=== PATIENT | female | born 1980 | race Native Hawaiian/Other Pacific Islander ===

== ENCOUNTER 2017-12-25 22:36 | Emergency (ER) | payer OTHER ==
[2017-12-25] MEDS ORDERED: NACL 0.9% 1000 ML 1,000 ML IV ONE (23:48)
[2017-12-26 00:47] LABS: Basophils # (Auto) 0.2 K/mm3 (0.0-0.1); Eosinophils # (Auto) 0.2 K/mm3 (0.0-0.4); Eosinophils % (Auto) 1.8 % (0.0-4.3); Hematocrit 35.4 % (30.3-42.9); Hemoglobin 11.6 gm/dl (10.1-14.3); Lymphocytes % (Auto) 28.7 % (13.4-35.0); Mean Corpuscular HGB Conc 33 % (30-34); Mean Corpuscular Volume 74 fl (79-97); Monocytes # (Auto) 0.7 K/mm3 (0.0-0.8); Monocytes % (Auto) 7.1 % (0.0-7.3); Platelet Count 196 K/mm3 (140-440); Red Blood Count 4.78 M/mm3 (3.65-5.03); Red Cell Distribution Width 17.5 % (13.2-15.2)
[2017-12-26 00:51] LABS: Mean Corpuscular Hemoglobin 24 pg (28-32)
[2017-12-26 00:56] LABS: Alanine Aminotransferase 7 units/L (7-56); Albumin 4.6 g/dL (3.9-5); BUN/Creatinine Ratio 25; Blood Urea Nitrogen 10 mg/dL (7-17); Calcium 9.8 mg/dL (8.4-10.2); Hemolysis Index 3
[2017-12-26 01:07] LABS: Bilirubin,Urine NEG (Negative); Blood,Urine NEG (Negative); Color,Urine Yellow (Yellow); Protein,Urine <15 mg/dL mg/dL (Negative); Urobilinogen,Urine < 2.0 mg/dL (<2.0); WBC,Urine < 1.0 /HPF (0.0-6.0)
--- NOTE | 2017-12-26 01:32 | Emergency Department Report ---
ED Abdominal Pain HPI - General Chief Complaint: Abdominal Pain Stated Complaint: RIBS/STOMACH PAIN Time Seen by Provider: 12/26/17 01:23 Source: patient Mode of arrival: Ambulatory Limitations: No Limitations - History of Present Illness Initial Comments: Patient is 37 years old female with no significant past medical history. Patient presented to the ER complaining of right upper quadrant and epigastric abdominal pain that radiated to her back. Patient stated that pain continued for 2 hours and went away. Patient denied any nausea or vomiting or diarrhea. No fever. MD Complaint: abdominal pain -: This evening Location: RUQ, epigastric Radiation: back Migration to: no migration Severity: moderate Severity scale (0 -10): 5 - Related Data Allergies Allergy/AdvReac Type Severity Reaction Status Date / Time No Known Allergies Allergy Unverified 12/25/17 23:42 ED Review of Systems ROS: Stated complaint: RIBS/STOMACH PAIN Other details as noted in HPI Comment: All other systems reviewed and negative Constitutional: denies: chills, fever Respiratory: denies: cough, orthopnea, shortness of breath, SOB with exertion, SOB at rest, wheezing Cardiovascular: denies: chest pain, palpitations, dyspnea on exertion Gastrointestinal: abdominal pain. denies: nausea, vomiting, diarrhea, constipation, hematemesis, melena, hematochezia Musculoskeletal: denies: back pain Neurological: denies: headache, weakness, numbness, paresthesias, confusion, abnormal gait ED Past Medical Hx - Past Medical History Previous Medical History?: No - Surgical History Past Surgical History?: Yes Additional Surgical History: c sec X3, clavicle - Social History Smoking Status: Current Every Day Smoker Substance Use Type: Alcohol ED Physical Exam - General Limitations: No Limitations General appearance: alert, in no apparent distress - Head Head exam: Present: atraumatic, normocephalic, normal inspection - Eye Eye exam: Present: normal appearance - ENT ENT exam: Present: normal exam, normal orophraynx, mucous membranes moist - Neck Neck exam: Present: normal inspection, full ROM. Absent: tenderness, meningismus - Respiratory Respiratory exam: Present: normal lung sounds bilaterally. Absent: respiratory distress, wheezes, rales, rhonchi, chest wall tenderness, accessory muscle use, decreased breath sounds, prolonged expiratory - Cardiovascular Cardiovascular Exam: Present: regular rate, normal rhythm, normal heart sounds - GI/Abdominal GI/Abdominal exam: Present: soft, tenderness (right upper quadrant tenderness.) , normal bowel sounds. Absent: distended, guarding, rebound, rigid, organomegaly, mass, bruit, pulsatile mass, hernia - Extremities Exam Extremities exam: Present: normal inspection, full ROM, normal capillary refill. Absent: tenderness, pedal edema, joint swelling, calf tenderness - Back Exam Back exam: Present: normal inspection, full ROM. Absent: CVA tenderness (R), CVA tenderness (L), muscle spasm, paraspinal tenderness, vertebral tenderness - Neurological Exam Neurological exam: Present: alert, oriented X3, CN II-XII intact, normal gait, reflexes normal - Skin Skin exam: Present: warm, intact, normal color ED Course Vital Signs 12/25/17 23:23 Temperature 98.2 F Pulse Rate 57 L Respiratory 14 Rate Blood Pressure 106/70 O2 Sat by Pulse 100 Oximetry ED Medical Decision Making - Lab Data Result diagrams: 12/25/17 23:51 12/25/17 23:51 - Radiology Data Radiology results: report reviewed Referring Physician: CRISTY VINCENT Patient Name: GWEN HAJI Date of : 1980 Sex: Female Report Date: 2017-12-26 Report Status: [place] [address] Ultrasound Report Signed Patient: GWEN HAJI MR#: [id number] : 1980 Acct:[id number] Age/Sex: 37 / F ADM Date: 12/25/17 Loc: ED Attending Dr: Ordering Physician: CRISTY VINCENT Date of Service: 12/26/17 Procedure(s): US abdomen limited Accession Number(s): [id number] cc: CRISTY VINCENT FINAL REPORT EXAM: US ABDOMEN LIMITED HISTORY: right upper quadrant pain and tenderness TECHNIQUE: Real-time sonography was performed of the right upper quadrant and images are submitted for interpretation. PRIORS: None. FINDINGS: The liver has a normal homogeneous echotexture without focal lesions. There are multiple stones in the gallbladder including a stone in the gallbladder neck. There is no gallbladder wall thickening or pericholecystic fluid. There is no evidence of biliary dilatation, the common bile duct measures 3 millimeters. The pancreas has a normal echogenicity and appearance. The visualized segments of the abdominal aorta and inferior vena cava appear normal. The right kidney appears normal in size, shape and echogenicity, measuring 10.7 x 4.8 x 4.8 cm IMPRESSION: Multiple stones in the gallbladder including a stone in the gallbladder neck. There is no sonographic evidence of acute cholecystitis. Transcribed By: [facility] Dictated By: RYNE AGUILAR MD Electronically Authenticated By: RYNE AGUILAR MD Signed Date/Time: 12/26/17329 DD/ 9 TD/TT: 12/26/17329 - Medical Decision Making Patient stated that she is feeling better. She does not have any pain now. No clinical, laboratory or ultrasonographic evidence of acute cholecystitis. I advised patient to follow-up with in the next 2-3 days. Critical care attestation.: If time is entered above; I have spent that time in minutes in the direct care of this critically ill patient, excluding procedure time. ED Disposition Clinical Impression: Abdominal pain, Gallbladder stone with nonacute cholecystitis Disposition: DC-01 TO HOME OR SELFCARE Is pt being admited?: No Condition: Stable Instructions: Abdominal Pain (ED), Biliary Colic (ED) Referrals: MARCIA MARLOW DO [Staff Physician] - 3-5 Days
[2017-12-26] MEDS ORDERED: NACL 0.9% 1000 ML 1,000 ML ONE (01:33)
[2017-12-26 01:58] LABS: HCG Qualitative,Urine Negative (Negative)
--- NOTE | 2017-12-26 03:37 | Ultrasound Report ---
FINAL REPORT EXAM: US ABDOMEN LIMITED HISTORY: right upper quadrant pain and tenderness TECHNIQUE: Real-time sonography was performed of the right upper quadrant and images are submitted for interpretation. PRIORS: None. FINDINGS: The liver has a normal homogeneous echotexture without focal lesions. There are multiple stones in the gallbladder including a stone in the gallbladder neck. There is no gallbladder wall thickening or pericholecystic fluid. There is no evidence of biliary dilatation, the common bile duct measures 3 millimeters. The pancreas has a normal echogenicity and appearance. The visualized segments of the abdominal aorta and inferior vena cava appear normal. The right kidney appears normal in size, shape and echogenicity, measuring 10.7 x 4.8 x 4.8 cm IMPRESSION: Multiple stones in the gallbladder including a stone in the gallbladder neck. There is no sonographic evidence of acute cholecystitis.
[2017-12-26] MEDS ORDERED: TORADOL IM ONE (04:54)
[2017-12-26 05:03] VITALS: BP 104/68
[2017-12-26] MEDS ORDERED: ZOFRAN ODT PO ONE (05:05)
[2017-12-26] MEDS ORDERED: ULTRAM PO ONE (05:05)
== END 2017-12-26 05:10 | disposition home or self-care (01) ==
LOC: ED 22:36
DX: K80.10 Calculus of gallbladder with chronic cholecystitis without obstruction (principal); F17.200 Nicotine dependence, unspecified, uncomplicated
CPT/HCPCS: 36415; 76705; 80053; 81001; 81025; 85025; 99284; J7030; Q0162

== ENCOUNTER 2018-01-06 06:02 | Day surgery (SDC) | payer OTHER ==
[~2018-01-06 06:02] MED LIST: MARCAINE-EPI/PF 0.25%-1:200,000 INFILTRATI ONE; NACL 0.9% IR ONE
[2018-01-06] MEDS ORDERED: MARCAINE-EPI 0.5%-1:200,000 INFILTRATI ONE (06:40)
[2018-01-06] MEDS ORDERED: LACTATED RINGERS 1,000 ML ONE (06:50)
[2018-01-06] MEDS: HEPARIN SUB-Q NR ×2 (06:52→07:01)
[2018-01-06] MEDS ORDERED: ZEMURON IV ONE (06:53)
[2018-01-06] MEDS ORDERED: XYLOCAINE MPF 2% ONE (06:53)
[2018-01-06] MEDS ORDERED: DIPRIVAN 10 MG/ML IV ONE (06:54)
[2018-01-06] MEDS ORDERED: DILAUDID ONE (06:54)
[2018-01-06] MEDS ORDERED: ZOFRAN ONE (06:54)
[2018-01-06] MEDS ORDERED: DECADRON ONE (06:54)
[2018-01-06] MEDS ORDERED: LACTATED RINGERS 1,000 ML IV SCH ×2 (07:00→08:00)
[2018-01-06] MEDS ORDERED: ANCEF/STERILE WATER 2 GM/20 ML IV NR (07:00)
[2018-01-06] MEDS ORDERED: SUBLIMAZE ONE (07:25)
[2018-01-06] MEDS ORDERED: ROBINUL ONE (07:34)
[2018-01-06] MEDS ORDERED: BLOXIVERZ ONE (07:34)
[2018-01-06] MEDS ORDERED: VERSED IV NR (08:00)
[2018-01-06] MEDS ORDERED: ZOFRAN IV PRN (08:00)
--- NOTE | 2018-01-06 08:06 | Anesthesia Day of Surgery ---
Anesthesia Day of Surgery - Day of Surgery Patient Examined: Yes Patient H&P Reviewed: Yes Patient is NPO: Yes
--- NOTE | 2018-01-06 08:07 | Anesthesia Consultation ---
Anesthesia Consult and Med Hx Date of service: 01/06/18 - Airway Anesthetic Teeth Evaluation: Good ROM Head & Neck: Adequate Mental/Hyoid Distance: Adequate Mallampati Class: Class I Intubation Access Assessment: Good - Pulmonary Exam CTA: Yes - Cardiac Exam Cardiac Exam: RRR - Pre-Operative Health Status ASA Pre-Surgery Classification: ASA2 Proposed Anesthetic Plan: General - Pulmonary Hx Smoking: Yes (LIGHT SMOKER) - Central Nervous System Hx Psychiatric Problems: No - Other Systems Hx Alcohol Use: Yes Hx Substance Use: No Hx Cancer: No
[2018-01-06] MEDS: DILAUDID IV PRN ×2 (09:12→09:25)
[2018-01-06] MEDS ORDERED: PERCOCET 5/325 PO PRN (09:36)
--- NOTE | 2018-01-06 09:42 | Post Anesthesia Evaluation ---
- Post Anesthesia Evaluation Patient Participated: Yes Airway Patent: Yes Stable Respiratory Function: Yes Nausea/Vomiting: No Temp > 96.8F: Yes Pain Manageable: Yes Adequeate Hydration: Yes Anesthesia Complications: No
[2018-01-06] MEDS ORDERED: DEMEROL ONE (09:43)
[2018-01-06] MEDS ORDERED: PERCOCET 5/325 ONE (09:43)
[2018-01-06] MEDS ORDERED: DEMEROL IV PRN (10:00)
[2018-01-06 10:27] VITALS: BP 115/76
--- NOTE | 2018-01-06 14:21 | Post Operative Note ---
Pre-op diagnosis: Chronic cholecystitis Post-op diagnosis: same Findings: Gallstones Procedure: Lap sparkle Anesthesia: GETA Surgeon: RICK GAGNON Estimated blood loss: minimal Pathology: list (Gallbladder and stones) Specimen disposition: to lab Condition: stable Disposition: PACU
--- NOTE | 2018-01-08 09:44 | Operative Report ---
Operative Report Operative Report: Date of operation: 01/06/2018 Preoperative diagnosis: Chronic cholecystitis Postoperative diagnosis: Same Operation: Laparoscopic cholecystectomy Surgeon: James Loo M.D. Findings: Multiple gallstones Anesthesia: GETA EBL: Minimal Specimens consisted of the gallbladder and gallstones. There were no complications, drains or cultures Description of procedure: Patient was placed supine on the operating room table. GETA was administered. Abdomen was prepped and draped. 8 mL of 0.5% Marcaine with epinephrine was used to infiltrate the skin and subcutaneous tissue at the proposed trocar sites. A small infraumbilical incision was made, linea alba incised and the peritoneal cavity carefully entered. A 10 mm blunt port was inserted into the peritoneal cavity and pneumoperitoneum established. 10 mm subxiphoid, 5 mm right upper quadrant and 5 mm right lateral abdominal Surgiports were inserted into the peritoneal cavity under direct vision without incident. Patient was placed in a reverse Trendelenburg position with the right side rotated upward. Fundus of gallbladder was grasped and retracted cephalad and laterally. The gallbladder/cystic duct junction was skeletonized. The cystic duct and artery were identified. The cystic duct was milked toward the gallbladder. Cystic duct and artery were doubly clipped and divided. The gallbladder was then dissected off of its hepatic fossa using electrocautery. The gallbladder was placed in an Endobag in the Endobag and gallbladder removed via the infraumbilical fascial defect. The infraumbilical port was replaced and pneumoperitoneum reestablished. Irrigation fluid used during the procedure was aspirated from the subhepatic space and Morison's pouch. The upper abdominal ports were removed and there was no bleeding identified from the port entry sites under low pressure. The infraumbilical port was removed and the pneumoperitoneum released. The infraumbilical fascial defect was closed with 2 interrupted sutures of 0 Vicryl. Skin incisions were closed with running subcuticular sutures of 4-0 Monocryl. Patient was extubated in the operating room. The procedure was well-tolerated. She was taken to PACU in stable condition.
== END 2018-01-06 10:41 | disposition home or self-care (01) ==
LOC: OR 06:02
PROVIDERS: ATTEND Surgery
DX: K80.10 Calculus of gallbladder with chronic cholecystitis without obstruction (principal); F17.200 Nicotine dependence, unspecified, uncomplicated; Z98.891 History of uterine scar from previous surgery; Z72.89 Other problems related to lifestyle; Z98.890 Other specified postprocedural states
CPT/HCPCS: 47562; 81025; 88304; A4217; J0690; J1100; J1170; J1644; J2175; J2405; J2704; J2710; J3010; J7120; J2250